=== PATIENT | female | born 1980 | race Caucasian/White ===

== ENCOUNTER 2017-07-07 08:57 | Day surgery (SDC) | payer OTHER, SELFPAY | END 2017-07-07 18:55 | disposition home or self-care (01) | PROVIDERS: PCP Family Medicine; Visit Provider Obstetrics & Gynecology | DX: E28.2 Polycystic ovarian syndrome (principal); N80.9 Endometriosis, unspecified; D25.9 Leiomyoma of uterus, unspecified | CPT/HCPCS: 58542; 88309; J0171; J0330; J0690; J1100; J1885; J2405; J2704; J2765; J2795; J3010 ==

== ENCOUNTER → 2021-07-12 15:18 | Outpatient (CLI) | payer OTHER, SELFPAY ==
[2021-07-12 16:56] LABS: Free T3, Triiodothyronine Free 3.54 pg/mL (2.77-5.27); Free T4, Direct Thyroxine 1.11 ng/dL (0.78-2.19)
[2021-07-12 17:10] LABS: Estradiol, Total 185.9 pg/mL
[2021-07-20 03:08] LABS: Triiodothyronine T3 Reverse 19.1 ng/dL (9.2-24.1)
== END ==
PROVIDERS: Family Provider Family Medicine; PCP Family Medicine; Referring Provider Obstetrics & Gynecology; Visit Provider Obstetrics & Gynecology
DX: R23.2 Flushing (principal)
CPT/HCPCS: 36415; 82670; 84439; 84481; 84482

== ENCOUNTER → 2021-08-16 14:42 | Outpatient (CLI) | payer OTHER, SELFPAY ==
--- NOTE | 2021-08-16 14:44 | DI.US.S_ITS ---
PROCEDURE: US THYROID INDICATIONS: ENLARGED THYROID TECHNIQUE: Real-time scanning was performed of the thyroid gland, with image documentation. COMPARISON: None. FINDINGS: Right: Thyroid lobe measures 4.9 x 4.8 x 1.5 cm, and is homogeneous in echotexture. Left: Thyroid lobe measures 4.9 x 1.4 x 1.5 cm, and is homogenous in echotexture. Isthmus: 3.9 mm thick. Nodule number: 1 Location: Left inferior Size: 1.0 x 1.0 x 0.8 cm. Composition: Predominantly cystic Echogenicity: Anechoic with a isoechoic nodule. Shape: wider than tall. Margins: Smooth Echogenic foci: None Total points: 1 ACR TI-RADS category: Not suspicious IMPRESSION: Predominantly cystic nodule in the left lobe of the thyroid gland. Based on imaging characteristics and criteria outlined below no additional follow-up is recommended. ACR TI-RADS definitions and recommendations: TI-RADS 1 (benign): 0 points. FNA not needed. TI-RADS 2 (not suspicious): 2 points. FNA not needed. TI-RADS 3 (mildly suspicious): 3 points. * FNA if 2.5 cm or larger, follow up if 1.5 cm or larger (at 1, 3, and 5 years). TI-RADS 4 (moderately suspicious): 4-6 points. * FNA if 1.5 cm or larger, follow up if 1 cm or larger (at 1, 2, 3, and 5 years). TI-RADS 5 (highly suspicious): 7 points or more. * FNA if 1 cm or larger, follow up if 0.5 cm or larger (every year for 5 years). Dictated by: Keely Chaves MD, PhD on 08/16/2021 at 17:19 Approved by: Keely Chaves MD, PhD on 08/16/2021 at 17:22
== END ==
PROVIDERS: Family Provider Family Medicine; PCP Family Medicine; Referring Provider Obstetrics & Gynecology; Visit Provider Obstetrics & Gynecology
DX: E04.1 Nontoxic single thyroid nodule (principal)
CPT/HCPCS: 76536

== ENCOUNTER → 2022-01-23 11:02 | Outpatient (CLI) | payer OTHER, SELFPAY ==
[2022-01-23 12:27] LABS: COVID19 -Nasal RAPID Negative (Negative)
== END ==
PROVIDERS: Family Provider Family Medicine; PCP Family Medicine; Visit Provider Obstetrics & Gynecology
DX: Z01.812 Encounter for preprocedural laboratory examination (principal); Z20.822 Contact with and (suspected) exposure to COVID-19
CPT/HCPCS: 87635

== ENCOUNTER 2022-01-24 06:39 | Day surgery (SDC) | payer OTHER, SELFPAY ==
[2022-01-22 08:10] VITALS: BMI 27.6
--- NOTE | 2022-01-24 | PATH_ITS ---
[facility] Accession Number: [id number] . 01 Material submitted: . LABIAL - RIGHT LABIAL MASS . 01 Diagnosis: Right Labial, Biopsy: Fragments of fibroadipose tissue with focal ruptured epidermal inclusion cyst with surrounding chronic and granulomatous inflammation with foreign body giant cell reaction to keratin material. . Note: No epidermis is visualized histologically. Clinicopathological correlation is advised. MRV 01/30/2022 1658 Local . 01 Comment: The histologic material was reviewed with Dr. Yuriy Pinto, who concurs. . . 01 Electronically signed: . Mary Lafleur MD, Dermatopathologist NPI- [id number] . 01 Gross description: . The specimen is received in formalin, labeled with the patient's name, , and R labial mass, and consists of two mondragon to yellow, irregular soft tissue fragments with no skin identified. The first measures 1.2 x 1.0 x 0.7 cm and is inked blue. The second measures 0.6 x 0.5 x 0.3 cm and is inked black. Sectioning reveals a yellow to mondragon, soft cut surface. The specimen is submitted entirely in cassettes A1-A2. ([id number]) /FRR 01/26/2022 1729 Local . 01 Pathologist provided ICD-10: L72.0 . 01 CPT . 648363 Specimen Comment: A courtesy copy of this report has been sent to [phone] Performed at: 01 [facility] [address] [place] [address], [place], [place] [id number] MD Jair Cary MD Phone: [phone]
[2022-01-24 07:28] VITALS: BP 121/72; PULSE 71; RESP 16; TEMP 36.2; O2SAT 100; BMI 27.6
[2022-01-24] MEDS: LACTATED RINGERS 1,000 ML 100 ML IV (07:40)
--- NOTE | 2022-01-24 07:46 | PM.HP.1 ---
History of Present Illness History of Present Illness Date Patient Seen: 01/24/22 Time Patient Seen: 07:47 Chief complaint: PELVIC Narrative: Patient is a 41-year-old who presents for excision of a right vulvar mass Patient History Medical History (Updated 07/15/21 @ 16:49 by Mary Gross MD) Adenomyosis Cardiac arrhythmia Endometriosis History of painful menstruation Infertility Mitral valve prolapse Raynaud's disease Tachycardia Surgical History (Updated 12/09/17 @ 14:32 by Nita Green) Anesthesia complication History of third molar tooth extraction (07/07/17) Lipoma of right thigh S/P laparoscopic supracervical hysterectomy (07/07/17) Status post bilateral salpingectomy Status post bilateral salpingo-oophorectomy (BSO) (07/07/17) Status post laparoscopic supracervical hysterectomy (07/07/17) Status post laparoscopy (04/14/15) [place] teeth extracted (1994) Family & Social History Family History (Updated 08/19/17 @ 16:17 by Nita Green) Family/Other Ovarian cancer Social History: household members spouse Tobacco & Substance use: Smoking Status Never smoker alcohol intake current alcohol intake frequency a few times a month Substance Use Type does not use Meds Home Medications and Allergies Home Medications Medication Instructions Recorded Confirmed Type glutamine 10 gram oral powder 10 gm PO ##0 07/04/17 01/23/22 History packet (GlutaMent) Saccharomyces boulardii [Daily 0.025 mg transdermal 24XD 07/12/21 01/24/22 History Probiotic (S. boulardii)] pantoprazole 20 mg tablet,delayed 20 mg PO DAILY 07/12/21 01/24/22 History release estradiol 0.025 mg/24 hr 1 patch transdermal 2XW #8 ea 08/17/21 01/23/22 Rx semiweekly transdermal patch Allergies Allergy/AdvReac Type Severity Reaction Status Date / Time ibuprofen AdvReac Mild HIVES Unverified 01/23/22 11:03 fentanyl [FENTANYL] AdvReac Unknown NAUSEA AND Unverified 01/23/22 11:03 VOMITING Exam Vital Signs (past 8 hours): - 01/24/22 07:28 Temperature 97.2 F L Pulse Rate 71 Respiratory Rate 16 Blood Pressure 121/72 Pulse Oximetry 100 Oxygen Delivery Method Room Air Oxygen Delivery Method Room Air Narrative Exam Narrative: HEENT: No thyromegaly, no anterior cervical or supraclavicular lymphadenopathy. Lungs:Clear to auscultation bilaterally, no wheezes. Cardiovascular: Regular rate and rhythm, no murmurs, rubs, or gallops. Abdomen: Well-healed laparoscopy scars. No hepatosplenomegaly. No masses palpable. External genitalia: 2 cm x 1.5 cm tender mass just outside of the labia minora Vagina: Normal Cervix: Well-supported Bimanual exam: No masses or tenderness Extremities: No edema Assessment & Plan Assessment & Plan narrative: Assessment: 41-year-old with a right vulvar mass Plan: Excision of right vulvar mass The risks, benefits, and alternatives to the procedure were explained to the patient. The risks including bleeding and infection. She understands these risks and agrees to proceed. A full par Q was held and consent form was signed. COVID-19 COVID-19 status: Negative Result date/Date tested (Pos, Neg/Pending): 01/23/22 Time Spent With Patient Time with patient: less than 30 minutes Critical Care time: I spent a total of [] minutes of critical care time on this patient's care today; this time is exclusive of procedural time.
--- NOTE | 2022-01-24 07:52 | PM.PREOP ---
Pre-operative Note COVID-19 COVID-19 status: Negative Result date/Date tested (Pos, Neg/Pending): 01/23/22 Criteria for continued procedure: Non-surgical alternatives not available or appropriate per current SOC Interval Note History & Physical reviewed/Exam performed by Physician: Yes Changes to H&P: No H&P completed within 30 days and has changed as indicated here:: 01/24/22
--- NOTE | 2022-01-24 08:14 | SUR.OPER ---
Lithotomy on padded OR bed, head on pillow, arms secured on padded arm boards at <90 degrees abduction. Legs secured in padded yellow fins stirrups.
[2022-01-24] MEDS: BUPIVACAINE 0.5% W/ EPI (PF) 30 ML VIAL INJ (08:18)
--- NOTE | 2022-01-24 08:35 | PM.GYNOP.1 ---
Operative Date/Time/Diagnoses Date of procedure: 01/24/22 Time of procedure: 08:36 Pre-op diagnosis: Right vulvar mass Post-op diagnosis: same Procedure & Clinicians Procedure: Procedures Operation Date: 01/24/22 07:45 Actual Procedure Side Surgeon p Excision of Labial Mass Right Mary Gross MD Indications: Tender mass in the right vulva which fluctuates in size Surgeon: Mary Gross Anesthesia Type: General (LMA) Operative Notes Findings: 1.5 x 1.5 cm ovoid mass just below the skin at the 5 o'clock position around the introitus Closure Type: primary Specimen(s): other (Right vulvar mass) Estimated blood loss (mL): 5 Blood products transfused: none Procedure in detail: After informed consent was obtained, the patient was taken to the operating room where she was placed in the dorsal supine position. After adequate LMA general anesthesia was achieved, she was placed in the dorsal lithotomy position, and prepped and draped in the usual sterile fashion. A time-out was performed. 3 cc 0.5% Marcaine with epinephrine were injected subcutaneously over the mass. A 1.5 cm incision was made. The mass was grasped with an Allis and dissected out with the Metzenbaum scissors. A deeper suture was placed with 3-0 chromic due to bleeding. Two simple interrupted sutures more superficially were placed to close the space. Four simple interrupted sutures were placed on the skin to reapproximate. Another 2 cc of local were injected at the completion of the procedure. Hemostasis was achieved. Sponge, lap, and instrument counts were correct x2. The patient tolerated the procedure well, and was taken to PACU in stable condition. Complications: none Post-operative Condition: stable Disposition: PACU Plan for aftercare: Home after recovery
[2022-01-24 08:38] VITALS: BP 93/57; PULSE 67; RESP 15; TEMP 36.3; O2SAT 99
[2022-01-24 08:43] VITALS: BP 89/54; PULSE 65; RESP 14; O2SAT 99
[2022-01-24 08:48] VITALS: BP 92/57; PULSE 59; RESP 15; O2SAT 99
[2022-01-24 08:53] VITALS: BP 98/62; PULSE 65; RESP 15; O2SAT 100
[2022-01-24 08:58] VITALS: BP 97/62; PULSE 60; RESP 18; TEMP 36.4; O2SAT 100
== END 2022-01-24 09:17 | disposition home or self-care (01) ==
PROVIDERS: Family Provider Family Medicine; PCP Family Medicine; Referring Provider Obstetrics & Gynecology; Visit Provider Obstetrics & Gynecology
PROC: (CPT 56605; principal; 2022-01-24 07:45)
DX: L72.0 Epidermal cyst (principal)
CPT/HCPCS: 56605; J1100; J1885; J2250; J2405; J2704; J3010